=== PATIENT | female | born 1965 | race Caucasian/White ===

== ENCOUNTER 2017-05-09 10:13 | Emergency (ER) | payer OTHER ==
[~2017-05-09] VITALS: Ht 165.1 cm; Wt 165.0 kg
[~2017-05-09 10:13] MED LIST: ADVAIR HFA120 INHAL1 IH; ADVIL200 MG PO; ALBUTEROL SULF8.5 GM IH; ALEVE220 MG PO; AMLODIPINE BESY10 MG PO; FORTAMET1000 M1 PO; HYDROCHLOROTHIA25 MG PO; K-DUR20 MEQ PO; LASIX40 MG PO; LO-DOSE ASPIRIN81 M1 PO; LOSARTAN POTAS100 MG PO
[2017-05-09 10:51] LABS: POINT-OF-CARE METER ID UU13113778
[2017-05-09 11:24] LABS: HEMATOCRIT 32.9 % (36.0-46.0); MCH 28.4 PG (29.0-34.0); MCHC 32.2 G/DL (30.0-36.0); MCV 88.2 FL (83-99); MEAN PLAT.VOLUME 9.8 uM^3 (9.5-12.4); PLATELET COUNT 429 K/uL (156-360); RBC DIS.WIDTH-CV 14.4 % (11.8-14.6); RBC DIS.WIDTH-SD 46.1 % (39-53); RED BLOOD COUNT 3.73 M/uL (3.80-5.20); WHITE BLOOD COUNT 13.4 K/uL (4.1-10.2)
[2017-05-09 11:34] LABS: CHLORIDE 96 mEq/L (99-109); POTASSIUM 3.5 mEq/L (3.7-5.4); SODIUM 134 mEq/L (136-147)
[2017-05-09 11:37] LABS: GLUCOSE 213 mg/dL (70-99)
[2017-05-09 11:38] LABS: ANION GAP 13 MEQ/L (2-14); TOTAL BILIRUBIN 0.7 mg/dL (0.0-1.0)
[2017-05-09 11:40] LABS: ALKALINE PHOSPHATASE 88 IU/L (3-129); GFR ESTIMATE (CALCULATED) > 59 mL/min/
[2017-05-09 11:41] LABS: UREA NITROGEN (BUN) 5 mg/dL (9-23)
[2017-05-09 11:44] LABS: LIPASE 4 U/L (1.0-51.0)
[2017-05-09 11:51] LABS: QUANTITATIVE HCG < 4.0 MIU/ML
[2017-05-09 15:33] LABS: ADD MIUA? YES; BILIRUBIN NEGATIVE; BLOOD SMALL; COLOR YELLOW ((YELLOW)); GLUCOSE (STRIP) NEGATIVE; KETONES 20; LEUKOCYTES MODERATE; NITRITE NEGATIVE; PROTEIN (STRIP) 30; UROBILINOGEN 0.2 MG/DL (0.2-1.0)
[2017-05-09 15:59] LABS: BACTERIA 1+ /HPF; CASTS NONE SEEN /LPF; CRYSTALS NONE SEEN; EPITHELIAL CELLS 2+ /HPF; MUCUS RARE /LPF; RED BLOOD CELLS 0-5 /HPF (0-5); UCUL ADDED? NO
[2017-05-09 20:57] VITALS: BP 127/78
== END 2017-05-09 21:07 | disposition short-term general hospital (02) ==
LOC: EME 10:13
DX: N70.93 Salpingitis and oophoritis, unspecified (principal); R65.10 Systemic inflammatory response syndrome (SIRS) of non-infectious origin without acute organ dysfunction; D72.829 Elevated white blood cell count, unspecified; E66.01 Morbid (severe) obesity due to excess calories; E11.65 Type 2 diabetes mellitus with hyperglycemia; I11.0 Hypertensive heart disease with heart failure; I50.9 Heart failure, unspecified; Z90.49 Acquired absence of other specified parts of digestive tract
CPT/HCPCS: 74177; 80053; 81003; 82948; 83605; 83690; 84702; 85027; 87040; 87210; 87506; 99281; 99285; J2405; J2543; J3010; J3370; J7030; J7040

== ENCOUNTER → 2017-06-02 | Outpatient (CLI) | payer OTHER ==
[~2017-06-02] VITALS: Ht 165.1 cm; Wt 150.5 kg
[~2017-06-02] MED LIST changes: +LANTUS 3 M100 UNITS1 SC
[2017-06-02 09:14] LABS: POINT-OF-CARE METER ID UU13113694
[2017-06-02 11:07] LABS: POINT-OF-CARE METER ID UU13113819
== END | disposition home or self-care (01) ==
LOC: OPR 08:30 → EDSTATUS 09:00 → OPR 09:00
PROVIDERS: Obstetrics & Gynecology Gynecology
DX: N70.93 Salpingitis and oophoritis, unspecified (principal); E11.9 Type 2 diabetes mellitus without complications; D64.9 Anemia, unspecified; I11.0 Hypertensive heart disease with heart failure; Z79.4 Long term (current) use of insulin; I50.32 Chronic diastolic (congestive) heart failure; E66.01 Morbid (severe) obesity due to excess calories; G47.33 Obstructive sleep apnea (adult) (pediatric); Z79.84 Long term (current) use of oral hypoglycemic drugs; Z87.891 Personal history of nicotine dependence
CPT/HCPCS: 77012; 82948; 87070; 87075; 87205; 88108; 88173; 88305; J3010